=== PATIENT | female | born 1965 | race Caucasian/White ===

== ENCOUNTER 2019-10-09 10:16 | Day surgery (SDC) | payer OTHER ==
[2019-10-03 11:55] VITALS: BMI 22.9
[2019-10-09 11:19] VITALS: TEMP 98
[2019-10-09 11:46] VITALS: BP 147/73; PULSE 68
--- NOTE | 2019-10-10 15:22 | PATH ---
Surgical Pathology Report Patient Name: MARYBETH NOBLE [facility]. Rec. #: [id number] /Age/Gender: 1965 (Age: 53) / F Account: [id number] Location: [facility]-ENDOSCOPY Taken: 10/09/2019 Received: 10/09/2019 Reported: 10/10/2019 Physicians: Ramírez Jimenez D.O. Specimen(s) Received A: SECOND PORTION AND BULB OF DUODENUM B: PYLORUS C: ANGULARIS AND BODY D: STOMACH POLYP BIOPSY Clinical History Nausea Postoperative diagnosis: Gastritis, gastric polyp Final Diagnosis A. SECOND PORTION AND BULB OF DUODENUM, BIOPSY: DUODENAL MUCOSA WITH FOCAL MILD ACUTE AND CHRONIC NONSPECIFIC DUODENITIS. NO EVIDENCE OF INTRAEPITHELIAL LYMPHOCYTOSIS. B. PYLORUS, BIOPSY: GASTRIC MUCOSA WITH REACTIVE GASTROPATHY. IMMUNOSTAIN FOR H. PYLORI IS NEGATIVE. NEGATIVE FOR INTESTINAL METAPLASIA. C. ANGULARIS AND BODY: GASTRIC MUCOSA WITH CHRONIC GASTRITIS. IMMUNOSTAIN FOR H. PYLORI IS NEGATIVE. NEGATIVE FOR INTESTINAL METAPLASIA. D. STOMACH POLYP BIOPSY: GASTRIC MUCOSA WITH HYPERPLASTIC POLYP. IMMUNOSTAIN FOR H. PYLORI IS NEGATIVE. Electronically Signed Carlito Cook M.D. Gross Description A. Received in formalin, labeled "second portion and bulb of duodenum" are 5 jacques, irregular portions of soft tissue ranging from 0.1-0.4 cm. in greatest dimension. The specimens are submitted in toto in one cassette. B. Received in formalin, labeled "pylorus biopsy" are 2 jacques, irregular portions of soft tissue measuring 0.2 and 0.3 cm. in greatest dimension. The specimens are submitted in toto in one cassette. C. Received in formalin, labeled "angularis and body biopsy" are 3 jacques, irregular portions of soft tissue ranging from 0.3-0.4 cm. in greatest dimension. The specimens are submitted in toto in one cassette. D. Received in formalin, labeled "stomach polyp biopsy" is a jacques, irregular portion of soft tissue measuring 0.2 cm. in greatest dimension. The specimen is submitted in toto in one cassette. /10/09/2019 saudi/10/09/2019
== END 2019-10-09 12:40 | disposition home or self-care (01) ==
LOC: JASU-ENDO 10:16
PROVIDERS: ATTEND Internal Medicine Gastroenterology
PROC: 0DB68ZX Excision of Stomach, Via Natural or Artificial Opening Endoscopic, Diagnostic (ICD-10-PCS; 2019-10-09)
PROC: 0DB98ZX Excision of Duodenum, Via Natural or Artificial Opening Endoscopic, Diagnostic (ICD-10-PCS; principal; 2019-10-09 11:00)
DX: K29.80 Duodenitis without bleeding (principal); K29.50 Unspecified chronic gastritis without bleeding; K31.9 Disease of stomach and duodenum, unspecified; K31.7 Polyp of stomach and duodenum; R10.13 Epigastric pain
CPT/HCPCS: 88305-TC; 88342-TC

== ENCOUNTER 2019-10-16 08:33 | Day surgery (SDC) | payer OTHER ==
[2019-10-09 12:30] VITALS: BMI 22.9
[2019-10-16 09:57] VITALS: TEMP 97.2
[2019-10-16 10:34] VITALS: BP 140/78; PULSE 69
--- NOTE | 2019-10-17 14:36 | PATH ---
Surgical Pathology Report Patient Name: MARYBETH NOBLE [facility]. Rec. #: [id number] /Age/Gender: 1965 (Age: 53) / F Account: [id number] Location: [facility]-ENDOSCOPY Taken: 10/16/2019 Received: 10/16/2019 Reported: 10/17/2019 Physicians: Ramírez Jimenez D.O. Specimen(s) Received BIOPSY OF RIGHT COLON Clinical History Family history of colon cancer Postoperative diagnosis: Right colon polyp Final Diagnosis RIGHT COLON POLYP, POLYPECTOMY: TUBULAR ADENOMA. Electronically Signed Carlito Cook M.D. Gross Description Received in formalin, labeled "biopsy right colon polyp" is a jacques, irregular portion of soft tissue measuring 0.3 cm. in greatest dimension. The specimen is submitted in toto in one cassette. /10/16/2019 saudi10/16/2019
== END 2019-10-16 11:03 | disposition home or self-care (01) ==
LOC: JASU-ENDO 08:33
PROVIDERS: ATTEND Internal Medicine Gastroenterology
PROC: 0DBK8ZX Excision of Ascending Colon, Via Natural or Artificial Opening Endoscopic, Diagnostic (ICD-10-PCS; principal; 2019-10-16 09:00)
DX: Z12.11 Encounter for screening for malignant neoplasm of colon (principal); D12.2 Benign neoplasm of ascending colon; K64.8 Other hemorrhoids; Z80.0 Family history of malignant neoplasm of digestive organs
CPT/HCPCS: 88305-TC

== ENCOUNTER 2020-07-28 04:16 | Day surgery (SDC) | payer OTHER ==
[2020-07-25 09:01] VITALS: BMI 23.9
[2020-07-28] MEDS ORDERED: MIDAZOLAM HCL 2 MG/2 ML SINGLE DOSE VIAL ONE (09:05)
[2020-07-28] MEDS ORDERED: PROPOFOL 20 ML ONE (09:05)
[2020-07-28 14:16] VITALS: BP 148/77; PULSE 64; TEMP 98.7
[2020-07-28] MEDS ORDERED: ONDANSETRON 4 MG/2 ML VIAL IVPUSH PRN (15:04)
[2020-07-28] MEDS ORDERED: ACETAMINOPHEN 325 MG TABLET (FP) PO PRN (15:04)
[2020-07-28] MEDS ORDERED: LACTATED RINGERS SOLUTION 1,000 ML IV SCH (15:15)
== END 2020-07-28 14:25 | disposition home or self-care (01) ==
LOC: JASU-SURG 04:16
PROVIDERS: ATTEND Urology
PROC: 0TF4XZZ Fragmentation in Left Kidney Pelvis, External Approach (ICD-10-PCS; principal; 2020-07-28 10:30)
DX: N20.0 Calculus of kidney (principal)